=== PATIENT | female | born 1985 | race Caucasian/White ===

== ENCOUNTER 2018-08-27 19:35 | Emergency (ER) | payer OTHER ==
[~2018-08-27] VITALS: Ht 175.3 cm; Wt 113.5 kg
[~2018-08-27 19:35] MED LIST: ACET-1600 PO
[2018-08-27 19:39] VITALS: BP 136/91
[2018-08-27] MEDS ORDERED: AZITHROMYCIN 250 MG TABLET ONE (20:12)
[2018-08-27] MEDS ORDERED: CEFTRIAXONE 250 MG ONE (20:12)
[2018-08-27] MEDS ORDERED: CEFTRIAXONE 250 MG IM ONE (20:30)
[2018-08-27] MEDS ORDERED: AZITHROMYCIN 250 MG TABLET PO ONE (20:30)
[2018-08-27 20:34] LABS: HCG UR SG 1.025 (1.003-1.030); MICROSCOPIC AUTO
[2018-08-27 20:41] LABS: CLUE CELLS NONE SEEN (NONE SEEN); WET PREP WBCS NONE SEEN (FEW)
[2018-08-27 20:45] LABS: CULTURE INDICATED? YES
== END 2018-08-27 21:17 | disposition home or self-care (01) ==
LOC: ED 21:10
DX: N30.01 Acute cystitis with hematuria (principal); A56.01 Chlamydial cystitis and urethritis; A59.03 Trichomonal cystitis and urethritis
CPT/HCPCS: 81001; 81025; 87086; 87210; 87491; 87591; 87808; 96372; 99283; J0696